=== PATIENT | male | born 1935 | race Caucasian/White ===

== ENCOUNTER 2020-08-21 13:03 | Observation (INO) | payer MEDICARE, OTHER, SELFPAY ==
[2020-08-21 13:04] VITALS: BP 140/55; PULSE 72; RESP 18; TEMP 36.5; O2SAT 95; BMI 18.8
[2020-08-21 13:38] LABS: Basophils % 0.5 % (0.1-2.0); Eosinophils # 0.2 K/mm3 (0.0-0.4); Eosinophils % 2.1 % (0.1-12.0); Hematocrit 33.5 % (42.0-52.0); Hemoglobin 11.4 g/dL (14.1-18.0); Lymphocytes # 2.1 K/mm3 (0.7-4.5); Lymphocytes % 25.4 % (10-50); Mean Corpuscular HGB Conc 34.1 g/dL (31.8-35.4); Mean Corpuscular Hemoglobin 31.8 pg (27.0-31.2); Mean Corpuscular Volume 93.4 fl (80-94); Mean Platelet Volume 8.3 fl (7.4-10.4); Monocytes # 0.4 K/mm3 (0.1-1.0); Monocytes % 4.8 % (1.7-9.3); Neutrophils # 5.6 K/mm3 (1.8-7.8); Neutrophils % 67.1 % (37.0-80.0); Platelet Count 120 K/mm3 (142-424); Red Blood Count 3.58 M/mm3 (4.60-6.20); Red Cell Distribution Width 14.3 % (11.5-17.5); White Blood Count 8.3 K/mm3 (4.8-10.8)
[2020-08-21 13:39] LABS: Chloride 107 mmol/L (98-107); Potassium 3.6 mmoL/L (3.5-5.1); Sodium 137 mmol/L (136-145)
[2020-08-21 13:42] LABS: Alanine Aminotransferase 29 U/L (12-78); Alkaline Phosphatase 84 U/L (38-126); Anion Gap 15.6 mEq/L (5-15); Aspartate Amino Transferase 71 U/L (17-59); Bilirubin,Total 0.7 mg/dl (0.2-1.3); Blood Urea Nitrogen 12 mg/dl (9-20); Calcium 7.9 mg/dl (8.4-10.2); Carbon Dioxide 18 mmol/L (22.0-30.0); Creatinine Clearance Estimated 43 mL/min (50-200); Estimated Glomerular Filt Rate 71 ml/min (>60); GFR (African American) 86 ML/MIN (>60); Glucose 129 mg/dl (74-100); Lipase 1090 U/L (23-300)
[2020-08-21 13:43] LABS: Albumin Level 3.5 g/dl (3.5-5.0); Albumin/Globulin Ratio 1.3 (1.1-1.8); Globulin 2.7 g/dL (1.3-3.2); Total Protein,Serum 6.2 g/dl (6.3-8.2)
--- NOTE | 2020-08-21 13:58 | HMH.EDGENADL ---
ED Disposition Clinical Impression: Pancreatitis Qualifiers: Chronicity: acute Pancreatitis type: alcohol induced Acute pancreatitis complication: unspecified Qualified Code(s): K85.20 - Alcohol induced acute pancreatitis without necrosis or infection Disposition: Admitted As Inpatient Condition on Discharge: Fair - Critical Care Critical Care Time: No Attestation: On 08/21/20, the high probability of a clinically significant, sudden or life threatening deterioration of the following system(s) required my full and direct attention, intervention and personal management. The time I documented below is in addition to time spent performing reported procedures but includes the following listed in this critical care notation. Medical Decision Making - Medical Records Medical records reviewed: Yes: I reviewed the patient's medical records. - Emile Inquiry Pt receiving controlled substance: Yes Emile was queried for this patient: Yes Reason not queried -: Emile login issues Risks and benefits of using a controlled substance: were discussed with pt by me Vital Signs: 08/21/20 13:04 Temperature 97.7 F Temperature Source Temporal Artery Scan Pulse Rate [Left Radial] 72 Respiratory Rate 18 Blood Pressure [Right Arm] 140/55 L Blood Pressure Mean [Right Arm] 83 Blood Pressure Source [Right Arm] Automatic Cuff Blood Pressure Position [Right Arm] Sitting 02 Sat by Pulse Oximetry 95 Oxygen Delivery Method Room Air - Lab Data Lab Results 08/21/20 13:20: WBC 8.3, RBC 3.58 L, Hgb 11.4 L, Hct 33.5 L, MCV 93.4, MCH 31.8 H, MCHC 34.1, RDW 14.3, Plt Count 120 L, MPV 8.3, Neut % (Auto) 67.1, Lymph % (Auto) 25.4, [place] % (Auto) 4.8, Eos % (Auto) 2.1, Baso % (Auto) 0.5, Neut # (Auto) 5.6, Lymph # (Auto) 2.1, [place] # (Auto) 0.4, Eos # (Auto) 0.2, Baso # (Auto) 0.0 08/21/20 13:20: Sodium 137, Potassium 3.6, Chloride 107, Carbon Dioxide 18 L, Anion Gap 15.6 H, BUN 12, Creatinine 1.00, Estimated Creat Clear 43, Estimated GFR 71, Est GFR ( Amer) 86, Glucose 129 H, Calcium 7.9 L, Total Bilirubin 0.7, AST 71 H, ALT 29, Alkaline Phosphatase 84, Total Protein 6.2 L, Albumin 3.5, Globulin 2.7, Albumin/Globulin Ratio 1.3, Lipase 1090 H 08/21/20 14:43: SARS-CoV-2 (PCR) Not detected, Influenza A Untype (PCR) Not detected, Influenza Type B (PCR) Not detected Result diagrams: 08/21/20 13:20 08/21/20 13:20 Orders (Tests/Meds): ED MEDICATIONS Generic Name Dose Route Start Last Admin Trade Name Freantonio PRN Reason Stop Dose Admin Folic Acid 1 mg 08/22/20 09:00 Folic Acid 1mg Tablet PO 09/21/20 08:59 DAILY ZEE Haloperidol 5 mg 08/21/20 13:27 Haloperidol 5 Mg Tablet PO 09/20/20 13:26 Q1HP PRN Agitation Magnesium Sulfate 2 gm/ 1,015 mls @ 333 mls/hr 08/21/20 13:30 08/21/20 13:34 Thiamine HCl 100 mg/ IV 08/21/20 16:32 333 mls/hr Multivitamins 10 ml/ Lactated ONCE ONE Administration Ringer's Lorazepam 2 mg 08/21/20 13:53 Lorazepam 2mg/Ml Vial IV Q6HP PRN IF UNABLE TO TAKE SERAX PO Multivitamins 1 each 08/21/20 17:00 Multivitamin Tablet PO 09/20/20 16:59 1700 ZEE Oxazepam 15 mg 08/23/20 13:30 Oxazepam 15 Mg Capsule PO 09/22/20 13:29 Q6H ZEE Oxazepam 30 mg 08/21/20 13:30 08/21/20 14:28 Oxazepam 15 Mg Capsule PO 08/23/20 07:31 Not Given Q6H ZEE Thiamine HCl 100 mg 08/22/20 09:00 Thiamine 100mg Tablet PO 08/24/20 09:01 DAILY ZEE Discontinued Medications Generic Name Dose Route Start Last Admin Trade Name Freq PRN Reason Stop Dose Admin Folic Acid 1 mg 08/21/20 13:30 08/21/20 13:34 Folic Acid 1mg Tablet PO 08/21/20 13:31 1 mg ONCE ONE Administration Sodium Chloride 1,000 mls @ 999 mls/hr 08/21/20 13:30 08/21/20 13:42 Sod Chlor 0.9% 1000ml Bag IV 08/21/20 14:30 999 mls/hr .Q1H1M ZEE Administration Lorazepam 2 mg 08/21/20 13:30 08/21/20 13:42 Lorazepam 2mg/Ml Vial IV 08/23/20 07:31 2 mg Q6H ZEE Ad
--- NOTE | 2020-08-21 14:06 | PC.NURSE ---
CIWA score 13 upon assessment. Will continue to monitor
--- NOTE | 2020-08-21 14:41 | PC.NURSE ---
[facility] at [facility] time.
[2020-08-21 15:18] LABS: Coronavirus 19, PCR Not Detected (NotDetected); Influenza A, PCR Not Detected (NotDetected); Influenza B, PCR Not Detected (NotDetected)
--- NOTE | 2020-08-21 16:40 | PC.NURSE ---
son went home to get med list, will be calling back or sending one back to update for pt. Didi MALDONADO aware.
[2020-08-21 16:51] VITALS: BP 100/75; PULSE 75; RESP 20; TEMP 36.5; O2SAT 95
--- NOTE | 2020-08-21 16:51 | PC.NURSE ---
pt arrived to the floor at this trey.
[2020-08-21 16:58] VITALS: BP 97/60; PULSE 91; RESP 17; TEMP 37.2; O2SAT 95; BMI 19.0
--- NOTE | 2020-08-21 17:22 | HMH.HP ---
*Admission Date: 08/21/20 *Chief complaint: 2 weeks of abdominal pain *History of present illness: 85-year-old male who is a primary [facility] patient but he was been disillusioned with the [facility] over the past couple of weeks because of some mixup about sertraline prescriptions, has had 2 weeks of gnawing abdominal pain, went to the CT couple days ago. I am unclear about whether he was evaluated for the abdominal pain but regardless was discharged home from his clinic visit. He presented today to our emergency department because of this abdominal pain. Work-up revealed that he was dehydrated, slightly low blood pressure. Electrolytes were fairly unremarkable and white count was normal but found to have significant lipase elevation. On further questioning it turns out that he is a daily user of alcohol, drinks 2 cans of beer daily. On questioning they are the tall boys variety so he drinks quite a few ounces of beer daily. He states that he has not drunk for a day and that he admits the alcohol was bothering his stomach. He does not report previous problems when he stops drinking alcohol and denies that he is ever had DTs or withdrawal seizures. He states that he stopped multiple times but I like to drink and so I start back. [facility] History I have reviewed the patient's past medical history: Yes Medical History: Reports:: Anxiety, Chronic Obstructive Pulmonary Disease (COPD), Depression, Gastroesophageal Reflux Disease(GERD), Hyperlipidemia, Hypertension *Have you ever received a pneumonia vaccine?: No *Have you received a flu vaccine this season?: No Comment:: On alpha blockers for BPH Other Surgeries: Yes: Cholecystectomy, Hernia Repair (Bilateral inguinal hernias) - *Social History Last grade of school completed: Advanced degree Smoking Status: Former smoker Alcohol Intake: current Alcohol Intake Frequency:: 3 or more drinks per day Substance Use Type: denies use *Occupational Status:: retired (Served in the [employer] and then following that that the [employer], retired maintenance construction helper) Household Members: spouse, children *Travel in the last 8 weeks: None - Psychiatric History Expresses thoughts of harming self/others: None Suicide Plan Description: No Plan Pschychiatric History:: Reports:: Anxiety, Depression Family Hx:: No significant family history Review of Systems - Review of Systems Review of systems:: pertinent systems reviewed and negative unless documented below Other than abdominal pain and fatigue patient denies cardiac or pulmonary issues. Denies focal neurologic changes but does report weakness. Ribeiro 10 point review of systems negative - *Neurologic Denies dizziness, Denies seizure-like activity Meds Home Medications Medication Instructions Recorded Confirmed Type Unobtainable 08/21/20 08/21/20 History Allergies Allergy/AdvReac Type Severity Reaction Status Date / Time No Known Allergies Allergy Unverified 01/29/17 14:16 Exam Vital signs and Labs for Last 24 Hours: Temp Pulse Resp BP Pulse Ox 98.9 F 91 H 17 97/60 L 95 08/21/20 16:58 08/21/20 16:58 08/21/20 16:58 08/21/20 16:58 08/21/20 16:58 Laboratory Results - last 24 hr 08/21/20 13:20: WBC 8.3, RBC 3.58 L, Hgb 11.4 L, Hct 33.5 L, MCV 93.4, MCH 31.8 H, MCHC 34.1, RDW 14.3, Plt Count 120 L, MPV 8.3, Neut % (Auto) 67.1, Lymph % (Auto) 25.4, [place] % (Auto) 4.8, Eos % (Auto) 2.1, Baso % (Auto) 0.5, Neut # (Auto) 5.6, Lymph # (Auto) 2.1, [place] # (Auto) 0.4, Eos # (Auto) 0.2, Baso # (Auto) 0.0 08/21/20 13:20: Sodium 137, Potassium 3.6, Chloride 107, Carbon Dioxide 18 L, Anion Gap 15.6 H, BUN 12, Creatinine 1.00, Estimated Creat Clear 43, Estimated GFR 71, Est GFR ( Amer) 86, Glucose 129 H, Calcium 7.9 L, Total Bilirubin 0.7, AST 71 H, ALT 29, Alkaline Phosphatase 84, Total Protein 6.2 L, Albumin 3.5, Globulin 2.7, Albumin/Globulin Ratio 1.3, Lipase 1090 H 08/21/20 14:43: SARS-CoV-2 (PCR) Not detected, Influenza A Untype (PCR) Not d
[2020-08-21 18:03] LABS: Lipase 599 U/L (23-300)
[2020-08-21 18:04] LABS: Lactic Acid 0.5 mmol/L (0.7-2.1)
[2020-08-21 20:00] VITALS: BP 100/68; PULSE 80; RESP 16; TEMP 36.6; O2SAT 94
--- NOTE | 2020-08-21 20:00 | PC.NURSE ---
Orders clarified with MD. EDDY to give lorazepam.
--- NOTE | 2020-08-22 03:18 | PC.NURSE ---
Patient is A&Ox4. No complaints of pain. Patient complained of nausea, anxiety and had significant tremors present at beginning of shift. CIWA protocol followed and patient scored a 5. Ativan administered, CIWA reassessed Q4 hours. Patient did rest throughout shift and is very pleasant. Voided per urinal. VSS. NO further concerns voiced to RN.
[2020-08-22 04:00] VITALS: BP 128/80; PULSE 80; RESP 16; TEMP 36.3; O2SAT 95
[2020-08-22 07:23] LABS: Basophils % 0.3 % (0.1-2.0); Eosinophils # 0.5 K/mm3 (0.0-0.4); Eosinophils % 7.1 % (0.1-12.0); Hematocrit 29.7 % (42.0-52.0); Lymphocytes # 1.6 K/mm3 (0.7-4.5); Mean Corpuscular HGB Conc 34.5 g/dL (31.8-35.4); Mean Corpuscular Hemoglobin 32.2 pg (27.0-31.2); Mean Corpuscular Volume 93.4 fl (80-94); Mean Platelet Volume 9.5 fl (7.4-10.4); Monocytes # 0.4 K/mm3 (0.1-1.0); Neutrophils # 4.6 K/mm3 (1.8-7.8); Neutrophils % 65.5 % (37.0-80.0); Platelet Count 101 K/mm3 (142-424); Red Blood Count 3.17 M/mm3 (4.60-6.20); Red Cell Distribution Width 14.2 % (11.5-17.5)
[2020-08-22 07:29] LABS: Alanine Aminotransferase 20 U/L (12-78); Albumin Level 2.6 g/dl (3.5-5.0); Alkaline Phosphatase 66 U/L (38-126); Anion Gap 9.7 mEq/L (5-15); Aspartate Amino Transferase 48 U/L (17-59); Bilirubin,Total 0.8 mg/dl (0.2-1.3); Blood Urea Nitrogen 12 mg/dl (9-20); Calcium 7.3 mg/dl (8.4-10.2); Carbon Dioxide 20 mmol/L (22.0-30.0); Chloride 111 mmol/L (98-107); Creatinine Clearance Estimated 46 mL/min (50-200); Estimated Glomerular Filt Rate 108 ml/min (>60); GFR (African American) 130 ML/MIN (>60); Globulin 2.5 g/dL (1.3-3.2); Glucose 80 mg/dl (74-100); Potassium 3.7 mmoL/L (3.5-5.1); Sodium 137 mmol/L (136-145); Total Protein,Serum 5.1 g/dl (6.3-8.2)
[2020-08-22 08:38] LABS: Hemoglobin 10.2 g/dL (14.1-18.0)
--- NOTE | 2020-08-22 09:05 | HMH.ACPN2 ---
Internal Medicine - PN: Subj *Date: 08/22/20 *Time: 09:05 Interval history: Patient feels a little better overnight. Notices that he has pain if he moves and twists his abdomen a lot. Ultrasound done this morning, reviewed prior to report. Exam Vital signs and Labs for Last 24 Hours: Temp Pulse Resp BP Pulse Ox 97.4 F L 80 16 128/80 95 08/22/20 04:00 08/22/20 04:00 08/22/20 04:00 08/22/20 04:00 08/22/20 04:00 Laboratory Results - last 24 hr 08/21/20 13:20: WBC 8.3, RBC 3.58 L, Hgb 11.4 L, Hct 33.5 L, MCV 93.4, MCH 31.8 H, MCHC 34.1, RDW 14.3, Plt Count 120 L, MPV 8.3, Neut % (Auto) 67.1, Lymph % (Auto) 25.4, [place] % (Auto) 4.8, Eos % (Auto) 2.1, Baso % (Auto) 0.5, Neut # (Auto) 5.6, Lymph # (Auto) 2.1, [place] # (Auto) 0.4, Eos # (Auto) 0.2, Baso # (Auto) 0.0 08/21/20 13:20: Sodium 137, Potassium 3.6, Chloride 107, Carbon Dioxide 18 L, Anion Gap 15.6 H, BUN 12, Creatinine 1.00, Estimated Creat Clear 43, Estimated GFR 71, Est GFR ( Amer) 86, Glucose 129 H, Calcium 7.9 L, Total Bilirubin 0.7, AST 71 H, ALT 29, Alkaline Phosphatase 84, Total Protein 6.2 L, Albumin 3.5, Globulin 2.7, Albumin/Globulin Ratio 1.3, Lipase 1090 H 08/21/20 14:43: SARS-CoV-2 (PCR) Not detected, Influenza A Untype (PCR) Not detected, Influenza Type B (PCR) Not detected 08/21/20 17:40: Lactate 0.5 L 08/21/20 17:40: Lipase 599 H 08/22/20 06:43: WBC 7.0, RBC 3.17 L, Hgb 10.2 L D, Hct 29.7 L, MCV 93.4, MCH 32.2 H, MCHC 34.5, RDW 14.2, Plt Count 101 L, MPV 9.5, Neut % (Auto) 65.5, Lymph % (Auto) 22.0, [place] % (Auto) 5.0, Eos % (Auto) 7.1, Baso % (Auto) 0.3, Neut # (Auto) 4.6, Lymph # (Auto) 1.6, [place] # (Auto) 0.4, Eos # (Auto) 0.5 H, Baso # (Auto) 0.0 08/22/20 06:43: Sodium 137, Potassium 3.7, Chloride 111 H, Carbon Dioxide 20 L, Anion Gap 9.7, BUN 12, Creatinine 0.70 D, Estimated Creat Clear 46, Estimated GFR 108, Est GFR ( Amer) 130 D, Glucose 80 D, Calcium 7.3 L, Total Bilirubin 0.8, AST 48 D, ALT 20 D, Alkaline Phosphatase 66, Total Protein 5.1 L, Albumin 2.6 L D, Globulin 2.5, Albumin/Globulin Ratio 1.0 L I & O for Last 24 hours: Intake & Output 08/19/20 08/20/20 08/21/20 08/22/20 11:59 11:59 11:59 11:59 Intake Total 1055 / 1055 Output Total 440 / 440 Balance 615 / 615 Weight 129 lb - Constitutional no acute distress - *Routine HEENT Exam Head: Present: normocephalic Eye: Present: EOMI, PERRL ENT: Present: mucous membranes moist - *Routine Neck Exam Present: supple. Absent: lymphadenopathy - *Routine Respiratory Exam Present: CTA bilaterally - *Routine Cardiovascular Exam Present: RRR - *Routine Abdominal Exam Present: soft, normoactive bowel sounds, tenderness (Fairly significant epigastric pain, slightly improved) - *Routine Extremities Exam Absent: cyanosis, clubbing, edema - *Routine Skin Exam Present: warm. Absent: rash - *Routine Neurological Exam Present: alert, oriented X3 Assessment and Plan (1) Pancreatitis Status: Acute Qualifiers: Chronicity: acute Pancreatitis type: alcohol induced Acute pancreatitis complication: unspecified Qualified Code(s): K85.20 - Alcohol induced acute pancreatitis without necrosis or infection Category: Medical Code(s): K85.90 - Acute pancreatitis without necrosis or infection, unspecified - Assessment and plan all Dx Assessment and Plan for all problems:: Patient clinically seems slightly improved. Continue to try to gather records from pharmacy in regards to what medicines he is on. Ultrasound shows coarsening liver markings, possible cyst of kidney and poor visualization of pancreas. CT scan of abdomen and pelvis to further define anatomy and liver status.
--- NOTE | 2020-08-22 09:14 | HMH.PHAVTE ---
[facility] Pharmacy VTE Monitoring - Patient Demographics Admission date: 08/22/20 Report Date: 08/22/20 Time: 09:15 Allergies/Adverse Reactions: Patient Allergies No Known Allergies Allergy (Unverified 01/29/17 14:16) Height: 1.71 m Weight: 58.513 kg Patient Problems: Current Active Problems Pancreatitis (Acute) - VTE Risk Labs: VTE Related Lab Results Hgb 10.2 g/dL (14.1-18.0) L D 08/22/20 06:43 Hct 29.7 % (42.0-52.0) L 08/22/20 06:43 Plt Count 101 K/mm3 (142-424) L 08/22/20 06:43 BUN 12 mg/dl (9-20) 08/22/20 06:43 Creatinine 0.70 mg/dl (0.66-1.25) D 08/22/20 06:43 Estimated Creat Clear 46 mL/min (50-200) 08/22/20 06:43 Was VTE Risk Assessment Performed: No Clinical Trial Participant: No - Prophylaxis VTE Prophylaxis Ordered?: Yes Types of VTE Prophylaxis: TEDS Knee High
--- NOTE | 2020-08-22 10:53 | HMH.PHAINT ---
home medication list verified using list from [place] pharmacy
--- NOTE | 2020-08-22 13:26 | PC.NURSE ---
DAUGHTER AND SPOUSE CONTACTED THIS RN TO CHECK ON PT. MED REC COMPLETED PER FAMILY.
--- NOTE | 2020-08-22 15:24 | PC.NURSE ---
HE IS AOX4, ABLE TO MAKE NEEDS KNOWN TO STAFF, DID C/O SOME BACK PAIN EARLIER IN SHIFT AND WAS MEDICATED WITH MORPHINE PER APR WITH GOOD EFFECTIVENESS. CIWA SCORES HAVE REMAINED 1 SINCE BEGINNING OF SHIFT. HE DENIES AUDITORY OR VISUAL DISTURBANCES. PRN ATIVAN WAS ADMIN PER APR ONCE THIS SHIFT. HE HAS VOIDED PER URINAL T/O SHIFT.
[2020-08-22 16:00] VITALS: BP 112/58; PULSE 95; RESP 16; TEMP 36.4; O2SAT 94
--- NOTE | 2020-08-22 17:19 | US_ITS ---
PROCEDURE: US ABDOMEN COMPLETE CLINICAL INDICATION: pancreatitis COMPARISON: No exams were available for comparison FINDINGS: PANCREAS: Pancreas is not well delineated due to overlying bowel gas. CT or MRI without and with contrast with pancreatic protocol may provide further evaluation if clinically desired. LIVER: No focal liver lesions demonstrated. Homogeneous echogenicity. No intrahepatic biliary ductal dilatation evident. There is appropriate direction of blood flow within a non dilated portal vein. There is a small amount of fluid along the superior portion of the liver. RIGHT KIDNEY: Unremarkable. Normal size and echogenicity. No hydronephrosis LEFT KIDNEY: 2 cm left renal cyst along the lower pole. A 4 cm cyst projects off the lower pole left kidney anteriorly. Cyst wall appears somewhat thickened posteriorly and inferiorly. Normal size and echogenicity. No hydronephrosis GALLBLADDER: Prior cholecystectomy. Common bile duct is normal at 3 mm. AORTA: Poor visualization due to overlying bowel gas SPLEEN: Unremarkable. Normal size and echogenicity ASCITES: None demonstrated. IMPRESSION: 1. There is a small amount of ascites. 2. Complex 4 cm cyst along the lower pole of the left kidney. CT without and with contrast with renal protocol suggested for further evaluation 3. The pancreas and aorta is not well delineated and may be better evaluated with CT. Dictated by: Miky Falcon MD 08/22/2020 10:46 Miky Falcon MD in [place] 08/22/2020 10:46
--- NOTE | 2020-08-22 17:30 | CT_ITS ---
PROCEDURE INFORMATION: Exam: CT Abdomen And Pelvis Without And With Contrast; Pancreas Exam date and time: 08/22/2020 5:30 PM Age: 85 years old Clinical indication: Abdominal pain; Generalized; Additional info: Pancreatitis TECHNIQUE: Imaging protocol: Computed tomography of the abdomen and pelvis without and with intravenous contrast. Exam focused on the pancreas. Radiation optimization: All CT scans at this facility use at least one of these dose optimization techniques: automated exposure control; mA and/or kV adjustment per patient size (includes targeted exams where dose is matched to clinical indication); or iterative reconstruction. Contrast material: ISOVUE 370; Contrast volume: 75 ml; Contrast route: INTRAVENOUS (IV); Other contrast: Oral, gastrograffin, 30; COMPARISON: US ABDOMEN COMPLETE 08/22/2020 8:00 AM FINDINGS: Lungs: Centrilobular emphysema within the visualized lower lobes. Minimal bibasilar atelectasis and scarring. Calcified granuloma within the right lower lobe. Pleural space: Small left pleural effusion. Liver: Normal. No mass. Gallbladder and bile ducts: Normal. No calcified stones. No ductal dilation. Pancreas: Normal. No ductal dilation. Spleen: Splenic calcifications, compatible with prior granulomatous disease. Adrenals: Normal. No mass. Kidneys and ureters: Simple left renal cyst, for which no further evaluation is necessary. Stomach and bowel: Colonic diverticulosis. Mild wall thickening of the cecum and ascending colon, possibly mild colitis. Intraperitoneal space: Small amount of intraperitoneal free fluid. Lymph nodes: Unremarkable. No enlarged lymph nodes. Vasculature: Mild three-vessel coronary artery atherosclerotic calcification. Atherosclerotic calcification of the visualized distal thoracic aorta. Atherosclerotic disease of the abdominal aorta and iliac arteries, with infrarenal fusiform abdominal aortic aneurysm measuring 5.1 cm in AP diameter by 5.2 cm in transverse dimension. No evidence of leakage or rupture. Bladder: Unremarkable. Reproductive: Unremarkable. Bones/joints: Unremarkable. No acute fracture. No dislocation. Soft tissues: Unremarkable. IMPRESSION: 1. Atherosclerotic disease of the abdominal aorta and iliac arteries, with infrarenal fusiform abdominal aortic aneurysm measuring 5.1 cm in AP diameter by 5.2 cm in transverse dimension. No evidence of leakage or rupture. Recommend surgical evaluation. 2. Mild wall thickening of the cecum and ascending colon, possibly mild colitis. COMMENTS: Consistent with the [employer]'s Incidental Findings Committee white paper (J Am Saran Radiol 2018): Any incidental renal lesion less than 1 cm or classified as too small to characterize, or any incidental cystic renal lesion characterized as simple-appearing, is likely benign. No follow-up imaging is recommended for these lesions per consensus recommendations based on imaging criteria.
[2020-08-22 20:00] VITALS: BP 123/69; PULSE 79; RESP 16; TEMP 36.7; O2SAT 97
--- NOTE | 2020-08-22 20:21 | PC.NURSE ---
Pt went to CT
--- NOTE | 2020-08-22 20:37 | PC.NURSE ---
Trash pulled at this time. Snack not given because pt is NPO
--- NOTE | 2020-08-22 22:10 | PC.NURSE ---
Patient arrived back in room from CT at 2109. Patient was assessed again, no changes from previously documented head to toe assessment. No concerns voiced to RN at this time.
[2020-08-23 04:00] VITALS: BP 120/73; PULSE 87; RESP 12; TEMP 36.6; O2SAT 96
--- NOTE | 2020-08-23 04:06 | PC.NURSE ---
Patient alert and oriented. no complaints of pain. At beginning of shift patient scored 0 on CIWA scale. Towards the middle of the shift patient became agitated, itching, and anxious and scored 7 on ciwa scale. Ativan administered and patient rested some. Patient did pull IV out and new one was obtained. Patient did ambulate x1 assist to bathroom and did have some black liquid stools. Voided per urinal. Patient verbalized no further concerns.
[2020-08-23 06:44] LABS: Basophils % 0.5 % (0.1-2.0); Eosinophils # 0.5 K/mm3 (0.0-0.4); Eosinophils % 8.2 % (0.1-12.0); Hematocrit 28.3 % (42.0-52.0); Hemoglobin 9.7 g/dL (14.1-18.0); Lymphocytes # 1.4 K/mm3 (0.7-4.5); Lymphocytes % 24.1 % (10-50); Mean Corpuscular HGB Conc 34.1 g/dL (31.8-35.4); Mean Corpuscular Hemoglobin 32.4 pg (27.0-31.2); Mean Corpuscular Volume 94.9 fl (80-94); Mean Platelet Volume 8.8 fl (7.4-10.4); Monocytes # 0.3 K/mm3 (0.1-1.0); Monocytes % 4.4 % (1.7-9.3); Neutrophils # 3.7 K/mm3 (1.8-7.8); Neutrophils % 62.7 % (37.0-80.0); Platelet Count 112 K/mm3 (142-424); Red Blood Count 2.98 M/mm3 (4.60-6.20); Red Cell Distribution Width 14.4 % (11.5-17.5); White Blood Count 5.9 K/mm3 (4.8-10.8)
[2020-08-23 06:50] LABS: Alanine Aminotransferase 17 U/L (12-78); Albumin Level 2.7 g/dl (3.5-5.0); Albumin/Globulin Ratio 1.1 (1.1-1.8); Alkaline Phosphatase 71 U/L (38-126); Anion Gap 10.7 mEq/L (5-15); Aspartate Amino Transferase 37 U/L (17-59); Bilirubin,Total 0.8 mg/dl (0.2-1.3); Blood Urea Nitrogen 12 mg/dl (9-20); Calcium 7.6 mg/dl (8.4-10.2); Carbon Dioxide 19 mmol/L (22.0-30.0); Chloride 112 mmol/L (98-107); Creatinine Clearance Estimated 46 mL/min (50-200); Estimated Glomerular Filt Rate 108 ml/min (>60); GFR (African American) 130 ML/MIN (>60); Globulin 2.4 g/dL (1.3-3.2); Potassium 3.7 mmoL/L (3.5-5.1); Sodium 138 mmol/L (136-145); Total Protein,Serum 5.1 g/dl (6.3-8.2)
--- NOTE | 2020-08-23 06:50 | HMH.ACPN2 ---
Internal Medicine - PN: Subj *Date: 08/23/20 *Time: 11:49 Interval history: 85-year-old male with pancreatitis and alcohol withdrawal. Having more symptoms overnight with CIWA score of 8. Started on oxazepam. Tolerating well however rather fatigued this morning. Concern for intolerance of current dose. Afebrile. Denies nausea or vomiting but had minimal pain with liquid diet this morning for breakfast. Denies shortness of breath. Mention several times about wanting to transition care to providers locally. I am done with the [facility], they treat you like a third class citizen . Exam Vital signs and Labs for Last 24 Hours: Temp Pulse Resp BP Pulse Ox 97.8 F 87 12 120/73 96 08/23/20 04:00 08/23/20 04:00 08/23/20 04:00 08/23/20 04:00 08/23/20 04:00 Laboratory Results - last 24 hr 08/22/20 06:43: WBC 7.0, RBC 3.17 L, Hgb 10.2 L D, Hct 29.7 L, MCV 93.4, MCH 32.2 H, MCHC 34.5, RDW 14.2, Plt Count 101 L, MPV 9.5, Neut % (Auto) 65.5, Lymph % (Auto) 22.0, [place] % (Auto) 5.0, Eos % (Auto) 7.1, Baso % (Auto) 0.3, Neut # (Auto) 4.6, Lymph # (Auto) 1.6, [place] # (Auto) 0.4, Eos # (Auto) 0.5 H, Baso # (Auto) 0.0 08/22/20 06:43: Sodium 137, Potassium 3.7, Chloride 111 H, Carbon Dioxide 20 L, Anion Gap 9.7, BUN 12, Creatinine 0.70 D, Estimated Creat Clear 46, Estimated GFR 108, Est GFR ( Amer) 130 D, Glucose 80 D, Calcium 7.3 L, Total Bilirubin 0.8, AST 48 D, ALT 20 D, Alkaline Phosphatase 66, Total Protein 5.1 L, Albumin 2.6 L D, Globulin 2.5, Albumin/Globulin Ratio 1.0 L 08/23/20 06:25: WBC 5.9, RBC 2.98 L, Hgb 9.7 L, Hct 28.3 L, MCV 94.9 H, MCH 32.4 H, MCHC 34.1, RDW 14.4, Plt Count 112 L, MPV 8.8, Neut % (Auto) 62.7, Lymph % (Auto) 24.1, [place] % (Auto) 4.4, Eos % (Auto) 8.2, Baso % (Auto) 0.5, Neut # (Auto) 3.7, Lymph # (Auto) 1.4, [place] # (Auto) 0.3, Eos # (Auto) 0.5 H, Baso # (Auto) 0.0 I & O for Last 24 hours: Intake & Output 08/20/20 08/21/20 08/22/20 08/23/20 23:59 23:59 23:59 23:59 Intake Total 1531 / 1531 Output Total 200 / 350 340 / 341 151 / 151 Balance -200 / -350 1191 / 1190 -151 / -151 Weight 55.99 kg 58.513 kg 58.522 kg Narrative: - Constitutional no acute distress, arouses to verbal and physical stimuli, answers questions appropriately - *Routine HEENT Exam Head: Present: normocephalic Eye: Present: EOMI, PERRL ENT: Present: mucous membranes moist - *Routine Neck Exam Present: supple. Absent: lymphadenopathy - *Routine Respiratory Exam Present: CTA bilaterally - *Routine Cardiovascular Exam Present: RRR - *Routine Abdominal Exam Present: soft, normoactive bowel sounds, tenderness (dual improvement in left upper quadrant and epigastric pain) - *Routine Extremities Exam Absent: cyanosis, clubbing, edema - *Routine Skin Exam Present: warm. Absent: rash - *Routine Neurological Exam Present: alert, oriented X3 Assessment and Plan (1) Pancreatitis Status: Acute Qualifiers: Chronicity: acute Pancreatitis type: alcohol induced Acute pancreatitis complication: unspecified Qualified Code(s): K85.20 - Alcohol induced acute pancreatitis without necrosis or infection Category: Medical Code(s): K85.90 - Acute pancreatitis without necrosis or infection, unspecified (2) Alcohol withdrawal Status: Acute Category: Medical Code(s): F10.239 - Alcohol dependence with withdrawal, unspecified (3) Protein calorie malnutrition Status: Acute Category: Medical Code(s): E46 - Unspecified protein-calorie malnutrition (4) Microcytic anemia Status: Acute Category: Medical Code(s): D50.9 - Iron deficiency anemia, unspecified (5) Essential hypertension Status: Chronic Category: Medical Code(s): I10 - Essential (primary) hypertension - Assessment and plan all Dx Assessment and Plan for all problems:: 85-year-old male with excessive alcohol intake who presented with pancreatitis. Now developing alcohol withdrawal symptoms. Treating withdraw
[2020-08-23 06:56] LABS: Glucose 48 mg/dl (74-100)
--- NOTE | 2020-08-23 07:22 | PC.NURSE ---
0.5 amp of d50 administered after critical lab result, glucose 48.
--- NOTE | 2020-08-23 07:27 | PC.NURSE ---
Lab notified RN of critical glucose of 48. Dr. Vu notified face to face at 0707. 1/2 amp of D50 administered. Blood glucose came up to 98 @ 0730
[2020-08-23 07:37] LABS: POC Glucose,Bedside 98 (70-110)
[2020-08-23 07:51] VITALS: BP 166/65; PULSE 95; RESP 20; TEMP 36.4; O2SAT 96
[2020-08-23 16:00] VITALS: BP 158/70; PULSE 69; RESP 16; TEMP 36.6; O2SAT 96
[2020-08-23 20:00] VITALS: BP 125/73; PULSE 75; RESP 16; TEMP 36.9; O2SAT 96
[2020-08-24 04:00] VITALS: BP 120/70; PULSE 68; RESP 16; TEMP 36.8; O2SAT 95
--- NOTE | 2020-08-24 04:13 | PC.NURSE ---
At the beginning of the shift patient was alert and oriented x4. Inspiratory rhonchi & expiratory wheezing where noted. At around midnight patient became very agitated and per APR, Ativan was given. Patient continued to become more agitated around 0100. Patient began hallucinating, became aggressive with staff and began hitting. MD administration intern was paged. Medication orders where received and given per APR. Patient has since been asleep and resting comfortably. Vital signs stable. Will continue to monitor.
[2020-08-24 05:00] VITALS: BMI 20.1
--- NOTE | 2020-08-24 05:54 | PC.NURSE ---
Patient asleep at this time.
[2020-08-24 06:42] VITALS: RESP 16; O2SAT 92
[2020-08-24 07:15] LABS: Basophils % 0.8 % (0.1-2.0); Eosinophils # 0.4 K/mm3 (0.0-0.4); Eosinophils % 8.9 % (0.1-12.0); Hematocrit 28.1 % (42.0-52.0); Hemoglobin 9.1 g/dL (14.1-18.0); Lymphocytes # 1.1 K/mm3 (0.7-4.5); Lymphocytes % 27.1 % (10-50); Mean Corpuscular HGB Conc 32.4 g/dL (31.8-35.4); Mean Corpuscular Hemoglobin 31.3 pg (27.0-31.2); Mean Corpuscular Volume 96.7 fl (80-94); Mean Platelet Volume 7.9 fl (7.4-10.4); Monocytes # 0.2 K/mm3 (0.1-1.0); Monocytes % 5.3 % (1.7-9.3); Neutrophils # 2.3 K/mm3 (1.8-7.8); Neutrophils % 57.8 % (37.0-80.0); Platelet Count 114 K/mm3 (142-424); Red Blood Count 2.91 M/mm3 (4.60-6.20); Red Cell Distribution Width 13.6 % (11.5-17.5)
[2020-08-24 07:34] LABS: Alanine Aminotransferase 16 U/L (12-78); Albumin Level 2.6 g/dl (3.5-5.0); Albumin/Globulin Ratio 1.1 (1.1-1.8); Alkaline Phosphatase 66 U/L (38-126); Anion Gap 9.4 mEq/L (5-15); Aspartate Amino Transferase 38 U/L (17-59); Bilirubin,Total 0.4 mg/dl (0.2-1.3); Blood Urea Nitrogen 7 mg/dl (9-20); Calcium 7.6 mg/dl (8.4-10.2); Carbon Dioxide 19 mmol/L (22.0-30.0); Chloride 113 mmol/L (98-107); Creatinine Clearance Estimated 47 mL/min (50-200); Estimated Glomerular Filt Rate 129 ml/min (>60); GFR (African American) 156 ML/MIN (>60); Globulin 2.4 g/dL (1.3-3.2); Glucose 84 mg/dl (74-100); Magnesium 1.5 mg/dl (1.6-2.3); Potassium 3.4 mmoL/L (3.5-5.1); Sodium 138 mmol/L (136-145)
[2020-08-24 07:57] VITALS: BP 135/80; PULSE 69; RESP 20; TEMP 36.2; O2SAT 96
--- NOTE | 2020-08-24 08:33 | HMH.ACPN2 ---
Internal Medicine - PN: Subj *Date: 08/24/20 *Time: 08:33 Interval history: Patient had some sundowning last night with a little bit of aggressive behavior. Treated with some Haldol which seemed to ameliorate the situation. This morning he states I did not know where I was last night. Continues to have some abdominal pain but is hungry. Exam Vital signs and Labs for Last 24 Hours: Temp Pulse Resp BP Pulse Ox 97.1 F L 69 20 135/80 96 08/24/20 07:57 08/24/20 07:57 08/24/20 07:57 08/24/20 07:57 08/24/20 07:57 Laboratory Results - last 24 hr 08/24/20 06:22: WBC 4.0 L D, RBC 2.91 L, Hgb 9.1 L, Hct 28.1 L, MCV 96.7 H, MCH 31.3 H, MCHC 32.4, RDW 13.6, Plt Count 114 L, MPV 7.9, Neut % (Auto) 57.8, Lymph % (Auto) 27.1, [place] % (Auto) 5.3, Eos % (Auto) 8.9, Baso % (Auto) 0.8, Neut # (Auto) 2.3, Lymph # (Auto) 1.1, [place] # (Auto) 0.2, Eos # (Auto) 0.4, Baso # (Auto) 0.0 08/24/20 06:22: Sodium 138, Potassium 3.4 L, Chloride 113 H, Carbon Dioxide 19 L, Anion Gap 9.4, BUN 7 L D, Creatinine 0.60 L, Estimated Creat Clear 47, Estimated GFR 129, Est GFR ( Amer) 156, Glucose 84 D, Calcium 7.6 L, Magnesium 1.5 L, Total Bilirubin 0.4, AST 38, ALT 16, Alkaline Phosphatase 66, Total Protein 5.0 L, Albumin 2.6 L, Globulin 2.4, Albumin/Globulin Ratio 1.1 I & O for Last 24 hours: Intake & Output 08/21/20 08/22/20 08/23/20 08/24/20 11:59 11:59 11:59 11:59 Intake Total 1055 / 1055 1367 / 1367 996 / 996 Output Total 440 / 440 601 / 601 0 / 0 Balance 615 / 615 766 / 766 996 / 996 Weight 129 lb 129 lb 0.3 oz 130 lb 1 oz Narrative: Overall patient appears slightly disheveled, but is pleasant and cooperative for me. Lungs have good air movement, heart rate regular. Abdomen continues to have epigastric pain but improving. No periumbilical or flank bruising. No CVA tenderness. Distal edema is not present. Slightly confused about time but much more cooperative apparently than last night per nurses report. Assessment and Plan (1) Pancreatitis Status: Acute Qualifiers: Chronicity: acute Pancreatitis type: alcohol induced Acute pancreatitis complication: unspecified Qualified Code(s): K85.20 - Alcohol induced acute pancreatitis without necrosis or infection Category: Medical Code(s): K85.90 - Acute pancreatitis without necrosis or infection, unspecified (2) Alcohol withdrawal Status: Acute Category: Medical Code(s): F10.239 - Alcohol dependence with withdrawal, unspecified (3) Protein calorie malnutrition Status: Acute Category: Medical Code(s): E46 - Unspecified protein-calorie malnutrition (4) Microcytic anemia Status: Acute Category: Medical Code(s): D50.9 - Iron deficiency anemia, unspecified (5) Essential hypertension Status: Chronic Category: Medical Code(s): I10 - Essential (primary) hypertension - Assessment and plan all Dx Assessment and Plan for all problems:: Overall slightly improved. Start full liquid diet today. Follow labs. PT/OT evaluation given his significant weakness. He might be a good candidate for skilled care because of his deconditioning issues. Risperdal low-dose twice daily for his . He has a long history of anxiety with depression issues and may have some behavioral/psychotic features at night.
[2020-08-24 10:48] VITALS: BMI 20.2
--- NOTE | 2020-08-24 11:08 | HMH.PTEV ---
Physical Therapy Evaluation Rehab PT IP Evaluation Start: 08/24/20 08:34 Freq: ONCE Status: Active Protocol: Document 08/24/20 11:04 PHORBRANDI (Rec: 08/24/20 11:07 PHORNE [id number]) Subjective/History History History 85 yowm adm to [facility] with pancreatitis. He reports he lives with and daughter at baseline with no steps to enter the home. He does not use an AD per his report. Subjective Subjective Currently c/o feeling tired, otherwise no c/o. Rehab PT IP Eval Objective Appearance Patient Behavior Appropriate Patient Orientation Person Difficulty following instructions none Speech Pattern Delayed Ambulation Patient Able to Ambulate Yes Ambulation Observation IP General Gait Pattern Observation Shuffling Step Ambulation Distance (feet) 10 Ambulation Ability Contact Guard/Hand Hold Balance Ability to Arise Able, uses arms to help Sitting Balance Steady, safe Standing Balance Steady, wide stance Dynamic Sitting Balance Ability Fair Dynamic Standing Balance Ability Poor Transfers Bed Transfer Ability Minimal x 1 (25% assist) Chair Transfer Ability Contact Guard/Hand Hold Sit to Stand Bed Transfer Ability Contact Guard/Hand Hold Sit to Stand Chair Transfer Ability Contact Guard/Hand Hold ROM All Extremities PT ROM Status WFL MMT All Extremities PT MMT WFL Rehab PT IP prob,goals,plan Problems Date of Evaluation: 08/24/20 PT IP Problems Bed Mobility,Transfers,Gait Rehab Potential Rehab Potential Good Plan PT Intervention Plan Bed Mobility,Transfers,Gait, Therapeutic Exercise PT Plan Frequency BID Duration LOS Discharge Goals Bed Transfer Ability Contact Guard/Hand Hold Sit to Stand Chair Transfer Ability Supervision/Stand by Ambulation Assistive Device Rolling Walker Ambulation Distance (feet) 30 Discharge Plan PT Discharge Plan Pt is currently most appropriate for rehab placement at this time with generalized wekaness and decreased balance. G -code Required No PHYSICIAN CERTIFICATION: I certify the specified therapy services for Rah Díaz are required, authorized, and reviewed every 30 days.
--- NOTE | 2020-08-24 11:48 | DIET.NUTRFU ---
Addendum entered by Sophy Whatley 08/24/20 14:14: Pt ate 100% of his lunch plus half a Breeze supplement with good toleration, states he is feeling significantly better. Son at bedside states this is the best he has seen him eat in a long time. Original Note: Nutritional assessment, IP/consult completed. Pt with moderate protein calorie malnutrition rt ETOH abuse. Diet edu/counseling for pancreatitis, ETOH abuse, and malnutrition/high energy+protein diet provided to pt and son at bedside. Pt has good support system from son who is a home health nurse. He voiced understanding and expressed motivation to improve nutritional status. Encouraged pt/son to reach out with any questions/concerns at any time post dc. Pt advanced to full liquid diet but was not able to eat much of his oatmeal for breakfast, he is sipping on a Breeze (fat free supplement) and tolerated both those well, recommend slowly advancing to low fat diet as tolerated. Breeze on diet order BID. Will monitor to alter nutritional care plan as indicated.
--- NOTE | 2020-08-24 12:29 | HMH.OTEV ---
OT Inpatient Evaluation Rehab OT IP Evaluation Start: 08/24/20 08:34 Freq: ONCE Status: Complete Protocol: Document 08/24/20 12:22 [place] (Rec: 08/24/20 12:29 [facility] [id number]) Rehab OT IP Assessment Subjective History Pt oriented x2 on arrival. Pt was admitted via ED on due to acute pancreatitis. Pt has a past medical history Anxiety, Chronic Obstructive Pulmonary Disease (COPD), Depression, Gastroesophageal Reflux Disease(GERD), Hyperlipidemia, Hypertension. Pt reports prior to becoming ill he lived at home with his . He explains his is not in great condition. Pt claims he is independent with ADLs and IADLs. Pt does use a walker during ambulation. Subjective I could do most of what I needed to. Objective Patient Orientation Person,Place,Birthday Upper Extremity Gross ROM WFL Shoulder ROM Limitations Muscle Weakness Elbow ROM Limitations Muscle Weakness Wrist Limitations of Range of Motion Muscle Weakness Transfer Training Sit/Stand Transfer Assist Level Minimal x 1 (25% assist) Chair Transfer Ability Minimal x 1 (25% assist) Chair Transfer Technique Sit to/from Ambulatory Chair Transfer Assistive Devices Rolling Walker Lower Body Dressing Ability Standby Assistance Rehab OT IP prob,goals,plan Problems Date of Evaluation: 08/24/20 OT IP Problems Bed Mobility,Transfers,Gait, Balance,Self care,Safety Rehab Potential Rehab Potential Good Equipment Needs Assistive Devices Rolling / Wheeled Walker Plan OT intervention Plan Bed Mobility,Transfers,Gait, Balance,Self care,Safety, Therapeutic Exercise OT Plan Frequency BID Duration LOS Discharge Goals Bed Mobility Ability Standby Assistance Sit to Stand Chair Transfer Ability Contact Guard/Hand Hold Chair Transfer Ability Contact Guard/Hand Hold Chair Transfer Technique Sit to/from Ambulatory Chair Transfer Assistive Devices Rolling Walker Feeding Ability Assist with Tray Set Up Lower Body Dressing Ability Standby Assistance Upper Body Dressing Ability Standby Assistance Bathing Ability Assistance
[2020-08-24 16:00] VITALS: BP 143/80; PULSE 67; RESP 20; TEMP 36.6; O2SAT 98
--- NOTE | 2020-08-24 17:00 | PC.NURSE ---
At beginning of shift, pt was A+Ox3. Pt is now A+O only to person. Pt has tried to get up and leave claiming he does not know where he is. Pt has remained pleasant and is currently resting in bed. Pt is on full liquid diet and has had c/o of abdominal pain t/o shift. Pain meds were given per APR. Bed alarm on. Call light within reach. Will continue to monitor.
[2020-08-24 17:57] VITALS: O2SAT 98
--- NOTE | 2020-08-24 23:04 | PC.NURSE ---
PT REFUSED VITALS .RN AWARE
--- NOTE | 2020-08-25 03:41 | PC.NURSE ---
PT ONLY ALERT TO PERSON AND BIRTHDAY. AT BEGINNING OF SHIFT, PT CONTINUED TO GET OUT OF BED AND WAS BEING VERY AGGRESSIVE TOWARD STAFF. ATIVAN AND SERAX ADMINISTERED PER APR. MD BEEBE ORDERED 2MG IM HALDOL, DID NOT ADMINISTER D/T PT FALLING ASLEEP ON HIS OWN. PT SHOWERED BY STAFF, THIS SEEMED TO HELP HIM REST. PT HAS NOT HAD MUCH ORAL INTAKE THIS SHIFT. RESTING IN BED AT THIS TIME, BED SAFETY IN PLACE. VSS WILL CONTINUE TO MONITOR.
[2020-08-25 04:00] VITALS: BP 148/90; PULSE 91; RESP 18; TEMP 36.4; O2SAT 92
[2020-08-25 05:00] VITALS: BMI 19.3
--- NOTE | 2020-08-25 06:31 | PC.NURSE ---
PT NOT ALLOWING STAFF TO DRAW BLOOD AT THIS TIME. PT GETS VERY AGITATED AND COMBATIVE.
[2020-08-25 08:00] VITALS: BP 145/95; PULSE 82; RESP 19; TEMP 36.6; O2SAT 97
--- NOTE | 2020-08-25 08:47 | HMH.DCSUM ---
General - General Admission date:: 08/21/20 Discharge date: 08/25/20 HPI HPI: 85-year-old male who is a primary [facility] patient but he was been disillusioned with the [facility] over the past couple of weeks because of some mixup about sertraline prescriptions, has had 2 weeks of gnawing abdominal pain, went to the [place] couple days ago. I am unclear about whether he was evaluated for the abdominal pain but regardless was discharged home from his clinic visit. He presented today to our emergency department because of this abdominal pain. Work-up revealed that he was dehydrated, slightly low blood pressure. Electrolytes were fairly unremarkable and white count was normal but found to have significant lipase elevation. On further questioning it turns out that he is a daily user of alcohol, drinks 2 cans of beer daily. On questioning they are the tall boys variety so he drinks quite a few ounces of beer daily. He states that he has not drunk for a day and that he admits the alcohol was bothering his stomach. He does not report previous problems when he stops drinking alcohol and denies that he is ever had DTs or withdrawal seizures. He states that he stopped multiple times but I like to drink and so I start back. Hospital Course Hospital Course: Patient was admitted to hospital. Given his abnormal kidney structures on ultrasound a CT scan was done which revealed no evidence of pancreatic phlegmon or significant inflammation but did reveal benign-appearing renal cyst and a lot of other age-related changes. Patient did well with clear liquids, did not require narcotic analgesia for pain control but did require some Tylenol. Unfortunately, the patient experienced significant sundowning phenomenon in the hospital-not unexpected given his advanced age and history of depression and anxiety at home that he has been taking sertraline and buspirone from his prior [facility] practitioner. The patient did improve during the day and was able to eat a full liquid diet without significant pain. No further vomiting. Did have a decline in his hemoglobin but this seems to be related to delusional activity rather than any evidence of blood loss. This morning the patient was sleeping comfortably, had eaten a good breakfast. Given his need to be home in a better psychological environment we plan to discharge home with home health. His grandson is actually a home health employee and will help facilitate setting this up. His medications are as noted. He will follow a low-fat diet, Tylenol for pain. He wishes to leave the [facility] system and I will be happy to assume his care and I had like to see him in 2 or 3 weeks. I would like home health to draw a CMP and a CBC on August 29 given his diagnosis of anemia and pancreatitis. Please note that I performed a [id number] evaluation on the patient today. He cannot leave the house without difficulty given pain, confusion and immobility. He requires evaluation for PT/OT/home safety/care home. Please note the patient requires a walker because of imbalance and ataxia. Of note his son reports that he has a chronic shuffling gait. We may consider evaluation for parkinsonism as an outpatient. I will give patient a very limited prescription for Valium for his alcohol withdrawal issues. Strongly encouraged to avoid drinking in the future. Otherwise his sertraline and BuSpar will continue. We will reevaluate his other medications at discharge. Objective Vital signs: Temp Pulse Resp BP Pulse Ox 97.8 F 82 19 145/95 H 97 08/25/20 08:00 08/25/20 08:00 08/25/20 08:00 08/25/20 08:00 08/25/20 08:00 no acute distress - *Routine HEENT Exam Head: Present: normocephalic Eye: Present: EOMI, PERRL ENT: Present: mucous membranes moist - *Routine Neck Exam Present: supple - *Routine Respiratory Exam Present: CTA bilaterally - *Routine Cardiovascular Exam Present: RRR - *Routine Abdominal Ex
--- NOTE | 2020-08-25 09:13 | PC.NURSE ---
D/t pt's shuffled gait he would benefit from a rolling walker upon discharge to assist w/ ambulation.
[2020-08-25 09:42] LABS: Basophils % 0.5 % (0.1-2.0); Eosinophils # 0.2 K/mm3 (0.0-0.4); Eosinophils % 3.1 % (0.1-12.0); Hematocrit 33.7 % (42.0-52.0); Hemoglobin 11.5 g/dL (14.1-18.0); Lymphocytes # 1.2 K/mm3 (0.7-4.5); Lymphocytes % 16.7 % (10-50); Mean Corpuscular HGB Conc 34.1 g/dL (31.8-35.4); Mean Corpuscular Hemoglobin 32.1 pg (27.0-31.2); Mean Platelet Volume 8.1 fl (7.4-10.4); Monocytes # 0.3 K/mm3 (0.1-1.0); Monocytes % 4.5 % (1.7-9.3); Neutrophils # 5.3 K/mm3 (1.8-7.8); Neutrophils % 75.3 % (37.0-80.0); Platelet Count 149 K/mm3 (142-424); Red Blood Count 3.59 M/mm3 (4.60-6.20); Red Cell Distribution Width 14.2 % (11.5-17.5); White Blood Count 7.1 K/mm3 (4.8-10.8)
[2020-08-25 09:44] LABS: Chloride 110 mmol/L (98-107); Sodium 139 mmol/L (136-145)
[2020-08-25 09:45] LABS: Potassium 3.7 mmoL/L (3.5-5.1)
[2020-08-25 09:47] LABS: Alanine Aminotransferase 23 U/L (12-78); Albumin Level 3.5 g/dl (3.5-5.0); Albumin/Globulin Ratio 1.2 (1.1-1.8); Alkaline Phosphatase 98 U/L (38-126); Anion Gap 10.7 mEq/L (5-15); Aspartate Amino Transferase 47 U/L (17-59); Bilirubin,Total 0.6 mg/dl (0.2-1.3); Blood Urea Nitrogen 4 mg/dl (9-20); Carbon Dioxide 22 mmol/L (22.0-30.0); Creatinine Clearance Estimated 45 mL/min (50-200); Estimated Glomerular Filt Rate 129 ml/min (>60); GFR (African American) 156 ML/MIN (>60); Globulin 2.9 g/dL (1.3-3.2); Total Protein,Serum 6.4 g/dl (6.3-8.2)
[2020-08-25 09:48] LABS: Glucose 103 mg/dl (74-100)
[2020-08-25 10:32] LABS: Calcium 8.6 mg/dl (8.4-10.2)
--- NOTE | 2020-08-25 10:48 | SW/DCPLANNER ---
RECEIVED REFERRAL FOR THIS PATIENT FOR HOME HEALTH [facility], PT/OT AND TO HAVE LABS DRAWN... PATIENT IS IN NETWORK WITH [facility] AND THIS WAS SET UP WITH THEIR SERVICES..A ROLLING WALKER FROM [facility] HAS ALSO BEEN DELIVERED TO HIS ROOM PRIOR TO DISCHARGE....
--- NOTE | 2020-08-25 11:00 | PC.NURSE ---
1030 - Pt's family contacted about DC, states son or son's will be up to get pt as soon as they are able.
== END 2020-08-25 12:50 | disposition home health service (06) ==
LOC: ER 15:23 → 2ND 15:41 → ER 08-23 00:33 → 2ND 08-23 10:49
PROVIDERS: Internal Medicine Adolescent Medicine; Admitting Provider Internal Medicine Adolescent Medicine; Emergency Provider Emergency Medicine; PCP Nurse Practitioner Family; Visit Provider Internal Medicine Adolescent Medicine
DX: K85.90 Acute pancreatitis without necrosis or infection, unspecified (principal); I10 Essential (primary) hypertension; E46 Unspecified protein-calorie malnutrition; Z68.1 Body mass index [BMI] 19.9 or less, adult; F10.239 Alcohol dependence with withdrawal, unspecified; D50.9 Iron deficiency anemia, unspecified; Z79.899 Other long term (current) drug therapy; Z20.822 Contact with and (suspected) exposure to COVID-19
CPT/HCPCS: 36415; 74178; 76700; 80053; 82962; 83605; 83690; 83735; 85025; 94640; 96365; 96367; 96375; 97116; 97162; 97166; 97530; 99284; 99291; G0378; Q9967; U0003

== ENCOUNTER 2021-03-25 13:38 | Emergency (ER) | payer MEDICARE, OTHER, SELFPAY ==
--- NOTE | 2021-03-25 13:54 | XR_ITS ---
PROCEDURE INFORMATION: Exam: XR Chest Exam date and time: 03/25/2021 1:54 PM Age: 85 years old Clinical indication: Shortness of breath; Additional info: SOA TECHNIQUE: Imaging protocol: XR of the chest. Views: 2 views. COMPARISON: CR CXR1 CHEST-PORTABLE 05/21/2016 4:56 PM FINDINGS: Lungs: Bilateral hyperinflation is present. Atelectatic changes noted within both lung bases. No focal pneumonia or pneumothorax. Pleural spaces: There are no pleural effusions present. Heart/Mediastinum: Unremarkable. No cardiomegaly. Bones/joints: The thoracic spine demonstrates mild degenerative changes at multiple levels. IMPRESSION: 1. Bilateral hyperinflation is present. 2. Atelectatic changes noted within both lung bases. 3. No focal pneumonia or pneumothorax.
--- NOTE | 2021-03-25 14:26 | HMH.EDUTC ---
[facility] Disposition Clinical Impression: COPD exacerbation, Bronchitis Disposition: Home, Self-Care Condition on Discharge: Good Instructions: Chronic Obstructive Pulmonary Disease, DI for Chronic Obstructive Pulmonary Disease Additional Instructions: Take tylenol for pain or fever. Take the medications as directed. Follow up with your regular doctor. GO TO THE ER FOR ANY WORSENING SYMPTOMS Quarantine until you know the results of your covid-19 test. Notify your school or workplace of your results and follow their instructions regarding return to work/school. Don't start the oral steroids (prednisone) until tomorrow, since you had the shot here today. Go ahead and start the oral antibiotics (azithromycin) this afternoon. The cough syrup (promethazine dm) will make you drowsy, so don't drive or operate heavy machinery after taking it. This medication can also make you dizzy, so be careful and do not fall after taking it. Only take it if your cough keeps waking you up at night. Take the tessalon perles for a cough at other times, because tessalon perles should not make you drowsy or dizzy. Use the patient portal to look up your viral panel results. If you have any trouble with this, please call [facility] at [facility] and I will try to help you. Prescriptions: Promethazine/Dextromethorphan [Promethazine-Dm Syrup] 5 ml PO Q6HP PRN #120 ml PRN Reason: Cough Transmission Status: Received by [facility][id number] Benzonatate [Benzonatate 100mg cap] 100 mg PO TIDP PRN #30 cap PRN Reason: Cough Transmission Status: Received by [facility][id number] predniSONE [Deltasone 10mg tablet] 10 mg PO DAILY 9 Days #21 tab Transmission Status: Received by [facility][id number] Azithromycin [Z-Ryan 250mg Tab*] 250 mg PO UD DOSE PK #6 tab Transmission Status: Received by [facility] #[id number] Referrals: Mikhail Ocampo MD [Primary Care Provider] - Time of Disposition: 15:19 Medical Decision Making - Medical Records Medical records reviewed: No: I reviewed the patient's medical records. - Emile Inquiry Pt receiving controlled substance: No Vital Signs: 03/25/21 15:03 03/25/21 15:27 Temperature 99.4 F 99.4 F Temperature Source Oral Pulse Rate 99 H Pulse Rate [Right Radial] 99 H Respiratory Rate 18 18 Blood Pressure 106/70 L Blood Pressure [Right Arm] 106/70 L Blood Pressure Mean [Right Arm] 82 Blood Pressure Source [Right Arm] Automatic Cuff Blood Pressure Position [Right Arm] Sitting 02 Sat by Pulse Oximetry 95 Oxygen Delivery Method Room Air - Lab Data Lab results reviewed: Yes: I reviewed the patient's lab results. Lab Results 03/25/21 15:28: Chlamy pneumoniae PCR Not detected, Adenovirus (PCR) Not detected, B. pertussis DNA (PCR) Not detected, Coronavirus OC43 (PCR) Not detected, Coronavirus HKU1 (PCR) Not detected, Coronavirus 229E (PCR) Not detected, SARS-CoV-2 (PCR) Not detected, Coronavirus NL63 (PCR) Not detected, Human Metapneumovir PCR Not detected, Influenza A (H1) PCR Not detected, Influ A (H1N1/09) PCR Not detected, Influenza A (H3) PCR Not detected, Influenza Type A (PCR) Not detected, Influenza Type B (PCR) Not detected, M. pneumoniae (PCR) Not detected, Parainfluenza 1 (PCR) Not detected, Parainfluenza 2 (PCR) Not detected, Parainfluenza 3 (PCR) Not detected, Parainfluenza 4 (PCR) Not detected, RSV (PCR) Not detected, Entero/Rhino (PCR) Not detected Orders (Tests/Meds): ED MEDICATIONS Discontinued Medications Generic Name Dose Route Start Last Admin Trade Name Freq PRN Reason Stop Dose Admin Ceftriaxone Sodium 1 gm 03/25/21 15:14 03/25/21 15:21 Ceftriaxone 1gm Vial IM 03/25/21 15:15 1 gm ONCE ONE Administration Lidocaine HCl 0 ml 03/25/21 15:14 03/25/21 15:21 Lidocaine 1% 5ml Pf Vial IM 03/25/21 15:15 2 ml ONCE ONE Administration Methylprednisolone Sodium Succinate 125 mg 03/25/21 15:14 03/25/21 15:21 Methylprednisolone Sod Succ 125mg Vial
[2021-03-25 15:03] VITALS: BP 106/70; PULSE 99; RESP 18; TEMP 37.4; O2SAT 95; BMI 18.8
[2021-03-25 15:27] VITALS: BP 106/70; PULSE 99; RESP 18; TEMP 37.4
[2021-03-25 15:36] LABS: Adenovirus,PCR Not Detected (NotDetected); Bordetella Pertussis Not Detected (NotDetected); Chlamydophila Pneumoniae, PCR Not Detected (NotDetected); Coronavirus 19, PCR Not Detected (NotDetected); Coronavirus 229E Not Detected (NotDetected); Coronavirus NL63 Not Detected (NotDetected); Coronavirus OC43 Not Detected (NotDetected); Coronovirus HKU1,PCR Not Detected (NotDetected); Human Metapneumovirus Not Detected (NotDetected); Influenza A, PCR Not Detected (NotDetected); Influenza AH1, 2009 Not Detected (NotDetected); Influenza AH1, PCR Not Detected (NotDetected); Influenza AH3,PCR Not Detected (NotDetected); Influenza B, PCR Not Detected (NotDetected); Mycoplasma Pneumoniae, PCR Not Detected (NotDetected); Parainfluenza 1, PCR Not Detected (NotDetected); Parainfluenza 2, PCR Not Detected (NotDetected); Parainfluenza 3, PCR Not Detected (NotDetected); Parainfluenza 4, PCR Not Detected (NotDetected); Respiratory Syncytial Virus Not Detected (NotDetected); Rhinovirus/Enterovirus Not Detected (NotDetected)
== END 2021-03-25 15:34 | disposition home or self-care (01) ==
PROVIDERS: Emergency Provider Nurse Practitioner Family; PCP Internal Medicine Adolescent Medicine
DX: J44.1 Chronic obstructive pulmonary disease with (acute) exacerbation (principal); J20.9 Acute bronchitis, unspecified; Z20.822 Contact with and (suspected) exposure to COVID-19; F41.8 Other specified anxiety disorders; K21.9 Gastro-esophageal reflux disease without esophagitis; E78.5 Hyperlipidemia, unspecified; I10 Essential (primary) hypertension; Z87.891 Personal history of nicotine dependence
CPT/HCPCS: G0463; 71046; 87581; 87632; 87798; 96372; 99202; C9803; J0696; U0003; U0005

== ENCOUNTER → 2021-04-25 15:12 | Outpatient (POV) | payer MEDICARE, OTHER, SELFPAY | PROVIDERS: Visit Provider Dermatology | DX: Z00.00 Encounter for general adult medical examination without abnormal findings (principal) ==

== ENCOUNTER → 2021-08-08 10:42 | Outpatient (CLI) | payer MEDICARE, SELFPAY ==
--- NOTE | 2021-08-08 10:49 | US_ITS ---
FINAL REPORT CLINICAL HISTORY: AAA WITHOUT RUPTURE FINDINGS: Sonographic images were obtained of the abdominal aorta. The abdominal aorta measures up to 5.5 cm in greatest dimensions. The common iliac arteries are within normal limits. IMPRESSION: 5.5 cm abdominal aortic aneurysm. CT of the abdomen may be helpful. Reviewed, Interpreted and Dictated by John Cantu III, MD Transcribed by Jose Eduardo Morse Authenticated and [facility]
== END ==
PROVIDERS: PCP Internal Medicine Adolescent Medicine; Visit Provider Internal Medicine Adolescent Medicine
DX: I71.4 Abdominal aortic aneurysm, without rupture (principal)
CPT/HCPCS: 76705

== ENCOUNTER → 2021-08-22 09:51 | Outpatient (CLI) | payer MEDICARE, SELFPAY ==
--- NOTE | 2021-08-22 09:56 | CT_ITS ---
FINAL REPORT CLINICAL HISTORY: ABDOMINAL AORTIC ANEURYSM FINDINGS: Post contrast axial imaging of the aorta and bilateral lower extremity was obtained and reviewed. This study was performed with techniques to keep radiation doses as low as reasonably achievable (ALARA). Individualized dose reduction techniques using automated exposure control or adjustment of mA and/or kV according to the patient's size were employed. There is a 5.7 cm infrarenal abdominal aortic aneurysm. The aneurysm neck measures 11 mm. There is a small or renal mass of the mural thrombus. There is no evidence of aortic stenosis. The celiac axis, superior mesenteric artery and inferior mesenteric artery are patent without stenosis. There are single renal arteries without stenosis. The iliac arteries are unremarkable, without stenosis. The internal iliac arteries are patent. Right: The right common femoral artery, deep femoral artery and superficial femoral artery are all patent, without stenosis. There are few small scattered plaques throughout the SFA. There is no stenosis of the popliteal artery. There is poor contrast delivery into the tibial vessels. The mid to distal tibial vessels are unopacified. Left: The left common femoral artery, deep femoral artery and superficial femoral artery are all patent, without stenosis. There are few small scattered plaques throughout the SFA. There is no stenosis of the popliteal artery. There is poor contrast delivery into the tibial vessels. The mid to distal tibial vessels are unopacified. Review of the remaining abdomen and pelvis demonstrates extensive descending and sigmoid colon diverticulosis. There is moderate lumbar scoliosis centered in the upper lumbar spine. IMPRESSION: Infrarenal abdominal aortic aneurysm. Small scattered plaque throughout the SFA bilaterally. No significant stenosis. Reviewed, Interpreted and Dictated by Geovanny Conley MD Transcribed by Jose Eduardo Morse Authenticated and [facility]
[2021-08-22 11:06] LABS: Blood Urea Nitrogen 14 mg/dl (9-20); Estimated Glomerular Filt Rate 80 ml/min (>60); GFR (African American) 97 ML/MIN (>60)
== END ==
PROVIDERS: PCP Internal Medicine Adolescent Medicine; Visit Provider Internal Medicine Adolescent Medicine
DX: I71.4 Abdominal aortic aneurysm, without rupture (principal)
CPT/HCPCS: 36415; 75635; 82565; 84520; Q9967

== ENCOUNTER → 2021-11-21 13:24 | Outpatient (POV) | payer MEDICARE, SELFPAY | PROVIDERS: Visit Provider Dermatology | DX: Z00.00 Encounter for general adult medical examination without abnormal findings (principal) ==

== ENCOUNTER → 2022-02-13 13:10 | Outpatient (POV) | payer MEDICARE, SELFPAY | PROVIDERS: Visit Provider Dermatology | DX: Z00.00 Encounter for general adult medical examination without abnormal findings (principal) ==